=== PATIENT | female | born 1975 | race Caucasian/White ===

== ENCOUNTER 2016-10-16 03:28 | Emergency (ER) | payer OTHER ==
[~2016-10-16] VITALS: Ht 168.9 cm; Wt 60.0 kg
[2016-10-16 03:34] VITALS: Ht 168.9 cm; Wt 60.0 kg
[2016-10-16] MEDS ORDERED: SOD CHLORIDE 0.9% 1,000 ML IV STA (04:18)
[2016-10-16] MEDS ORDERED: ONDANSETRON 4 MG INJ IV STA (04:18)
[2016-10-16] MEDS ORDERED: morphine 4 MG/ML VIAL IV STA (04:18)
[2016-10-16 05:02] LABS: BASOPHIL # 0.1 10^3/ul (0.0-0.1); BASOPHILS % 0.7 % (0.0-2.0); EOSINOPHILS # 0.2 10^3/ul (0.0-0.5); EOSINOPHILS % 2.7 % (0.0-7.0); HEMATOCRIT 43.2 % (37.0-47.0); HEMOGLOBIN 14.3 g/dl (12.0-16.0); LYMPHOCYTES # 3.5 10^3/ul (0.8-2.9); LYMPHOCYTES % 47.2 % (15.0-51.0); MEAN CORPUSCULAR HEMOGLOBIN 29.5 pg (29.0-33.0); MEAN CORPUSCULAR HGB CONC 33.1 g/dl (32.0-37.0); MEAN CORPUSCULAR VOLUME 89.1 fl (82.0-101.0); MONOCYTE # 0.8 10^3/ul (0.3-0.9); MONOCYTES % 10.6 % (0.0-11.0); NEUTROPHIL # 2.9 10^3/ul (1.6-7.5); NEUTROPHILS % 38.7 % (39.0-77.0); PLATELET COUNT 256 10^3/UL (140-415); RED BLOOD COUNT 4.85 10^6/ul (4.20-5.40); RED CELL DISTRIBUTION WIDTH 11.9 % (11.5-14.5); WHITE BLOOD COUNT 7.4 10^3/ul (4.8-10.8)
--- NOTE | 2016-10-16 05:06 | RADRPT ---
PROCEDURE: US Abdomen. CLINICAL INDICATION: Abdominal Pain TECHNIQUE: Bergman scale and color Doppler imaging of the right upper quadrant COMPARISON: None FINDINGS: The aorta and visualized inferior vena cava are unremarkable in appearance. The liver is homogeneou s in echotexture and no focal liver lesions are seen. The gallbladder is normal in appearance withou t evidence of stones, sludge, or wall thickening. No intra or extrahepatic biliary dilatation is see n. The common bile duct measures 3 mm in maximal dimension. The right kidney measures 9.6 cm. No hydronephrosis or renal calculi are seen. The pancreas is partially obscured by bowel gas. No asci sofie is seen. IMPRESSION: Study slightly limited by bowel gas. No definite acute abnormality. RPTAT: [facility] Physician Rajeev Date Time Electronically viewed and signed by Viktoria Priest Physician on 10/16/2016 05:05 ULISSES/
[2016-10-16 05:08] LABS: ADD UMIC YES; UR ASCORBIC ACID 40 mg/dL (NEGATIVE); UR BACTERIA FEW /HPF (NONE SEEN); UR BILIRUBIN (Dip) NEGATIVE (NEGATIVE); UR BLOOD (Dip) 1+ mg/dL (NEGATIVE); UR CLARITY CLEAR (CLEAR); UR COLOR YELLOW (YELLOW); UR GLUCOSE (Dip) NEGATIVE (NEGATIVE); UR KETONES (Dip) TRACE mg/dL (NEGATIVE); UR LEUKOCYTE ESTERASE (Dip) NEGATIVE Leu/ul (NEGATIVE); UR MUCUS FEW /HPF (NONE SEEN); UR NITRITE (Dip) NEGATIVE (NEGATIVE); UR RBC 3 /HPF (0-5); UR SPECIFIC GRAVITY (Dip) 1.019 (1.003-1.030); UR SQUAMOUS EPITHELIAL CELL FEW /HPF (FEW); UR TOTAL PROTEIN (Dip) NEGATIVE (NEGATIVE); UR UROBILINOGEN (Dip) NEGATIVE (NEGATIVE)
[2016-10-16 05:23] LABS: ALBUMIN 4.6 g/dl (3.3-4.9); ALBUMIN/GLOBULIN RATIO 1.58; BILIRUBIN,INDIRECT 0.2 mg/dl (0-1.1); BILIRUBIN,TOTAL 0.2 mg/dl (0.2-1.3); CALCIUM 9.9 mg/dl (8.4-10.2); CREATININE 0.62 mg/dl (0.44-1.00); POTASSIUM 4.1 mmol/L (3.5-5.1); TOTAL PROTEIN 7.5 g/dl (6.1-8.1)
--- NOTE | 2016-10-16 05:25 | ERD ---
ER Documentation Chief Complaint Date/Time DATE: 10/16/16 TIME: 05:24 Chief Complaint right upper abd sharp pain & nausea,hx gallstones HPI Is a 41-year-old female comes right upper abdominal sharp pain with nausea. Patient does have history of gallstones. Pain is mild to moderate intensity. No fevers no chills. No other current complaints. ROS All systems reviewed and are negative except as per history of present illness. Allergies Allergies: Coded Allergies: levofloxacin (Verified Allergy, Unknown, 10/16/16) PMhx/Soc History of Surgery: No Anesthesia Reaction: No Hx Neurological Disorder: No Hx Respiratory Disorders: No Hx Cardiac Disorders: No Hx Psychiatric Problems: No Hx Miscellaneous Medical Probl: Yes (gallstones) Hx Alcohol Use: No Hx Substance Use: No Hx Tobacco Use: No Smoking Status: Never smoker Physical Exam Vitals Vital Signs Date Time Temp Pulse Resp B/P Pulse Ox O2 Delivery O2 Flow Rate FiO2 10/16/16 03:34 98.8 86 18 96/52 99 Physical Exam Const: [] Head: Atraumatic Eyes: Normal Conjunctiva ENT: Normal External Ears, Nose and Mouth. Neck: Full range of motion..~ No meningismus. Resp: Clear to auscultation bilaterally Cardio: Regular rate and rhythm, no murmurs Abd: Soft, non tender, non distended. Normal bowel sounds Skin: No petechiae or rashes Back: No midline or flank tenderness Ext: No cyanosis, or edema Neur: Awake and alert Psych: Normal Mood and Affect Result Diagram: 10/16/16 0425 Results 24 hrs Laboratory Tests Test 10/16/16 04:25 White Blood Count 7.410^3/ul Red Blood Count 4.8510^6/ul Hemoglobin 14.3g/dl Hematocrit 43.2% Mean Corpuscular Volume 89.1fl Mean Corpuscular Hemoglobin 29.5pg Mean Corpuscular Hemoglobin Concent 33.1g/dl Red Cell Distribution Width 11.9% Platelet Count 25729^3/UL Mean Platelet Volume 9.0fl Neutrophils % 38.7% Lymphocytes % 47.2% Monocytes % 10.6% Eosinophils % 2.7% Basophils % 0.7% Nucleated Red Blood Cells % 0.0/100WBC Neutrophils # 2.910^3/ul Lymphocytes # 3.510^3/ul Monocytes # 0.810^3/ul Eosinophils # 0.210^3/ul Basophils # 0.110^3/ul Nucleated Red Blood Cells # 0.010^3/ul Urine Color YELLOW Urine Clarity CLEAR Urine pH 6.0 Urine Specific Mertens 1.019 Urine Ketones TRACEmg/dL Urine Nitrite NEGATIVEmg/dL Urine Bilirubin NEGATIVEmg/dL Urine Urobilinogen NEGATIVEmg/dL Urine Leukocyte Esterase NEGATIVELeu/ul Urine Microscopic RBC 3/HPF Urine Microscopic WBC 0/HPF Urine Squamous Epithelial Cells FEW/HPF Urine Bacteria FEW/HPF Urine Mucus FEW/HPF Urine Hemoglobin 1+mg/dL Urine Glucose NEGATIVEmg/dL Urine Total Protein NEGATIVEmg/dl Current Medications Medications (Trade) Dose Ordered Sig/Jimmie Route PRN Reason Start Time Stop Time Status Last Admin Dose Admin Sodium Chloride (NS) 1,000 ml @ 1,000 mls/hr Q1H STAT IV 10/16/16 04:18 10/16/16 05:17 DC 10/16/16 04:41 Morphine Sulfate (morphine) 4 mg ONCE STAT IV 10/16/16 04:18 10/16/16 04:28 DC 10/16/16 04:41 Ondansetron HCl (Zofran Inj) 4 mg ONCE STAT IV 10/16/16 04:18 10/16/16 04:28 DC 10/16/16 04:40 Procedures/MDM 41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 No fevers no chills. At this point pain is resolved. Stable for outpatient management. Patient was discharged home with close follow-up with her primary care physician. Departure Diagnosis: Primary Impression: Abdominal pain Abdominal location: right upper quadrant Qualified Code: R10.11 - Right upper quadrant abdominal pain Condition: Stable VENKAT BOYD Oct 16, 2016 05:25
[2016-10-16] MEDS ORDERED: ONDA4TAB14 PO (05:30)
[2016-10-16] MEDS ORDERED: TRAM50TA2 PO (05:30)
== END 2016-10-16 06:11 | disposition home or self-care (01) ==
LOC: E/R 03:28
DX: R10.11 Right upper quadrant pain (principal); R11.0 Nausea
CPT/HCPCS: 36415; 76705; 80053; 81001; 83690; 85025; 96374; 96375; 99285; J2270; J2405; J7030